=== PATIENT | female | born 1990 | race African-American/Black ===

== ENCOUNTER 2019-08-06 18:26 | Emergency (ER) | payer SELFPAY ==
--- NOTE | 2019-08-06 18:50 | ER Document Report ---
ED Medical Screen (RME) - General Chief Complaint: Vag Bleeding, +preg <12wks Stated Complaint: ABDOMINAL PAIN, VAGINAL BLEEDING Time Seen by Provider: 08/06/19 18:46 Mode of Arrival: Ambulatory Information source: Patient Notes: 29-year-old female presented to ED for site of pelvic pain vaginal bleeding spotting. She is about 8 weeks . She is alert oriented respirations regular and unlabored. She states vaginal bleeding is started on 11 July and is been intermittent since then. The pain started 2 days ago. She states she developed some back pain also today. 1 para 0. I have greeted and performed a rapid initial assessment of this patient. A comprehensive ED assessment and evaluation of the patient, analysis of test results and completion of medical decision making process will be conducted by an additional ED providers. TRAVEL OUTSIDE OF THE [place] IN LAST 30 DAYS: No - Related Data Allergies/Adverse Reactions: No Known Allergies Allergy (Unverified 05/22/15 19:26) Past Medical History - Past Medical History Cardiac Medical History: Reports: Hx Hypertension Neurological Medical History: Reports: Hx Migraine Past Surgical History: Reports: Hx Oral Surgery - Immunizations Hx Diphtheria, Pertussis, Tetanus Vaccination: Yes Physical Exam - Vital signs Vitals: Temp Pulse Resp BP Pulse Ox 98.6 F 88 18 131/77 H 100 08/06/19 18:33 08/06/19 18:33 08/06/19 18:33 08/06/19 18:33 08/06/19 18:33 Course - Vital Signs Vital signs: Temp Pulse Resp BP Pulse Ox 98.6 F 88 18 131/77 H 100 08/06/19 18:33 08/06/19 18:33 08/06/19 18:33 08/06/19 18:33 08/06/19 18:33
[2019-08-06 19:29] LABS: ABSOLUTE BASOPHILS # (AUTO) 0.1 10^3/uL (0.0-0.2); ABSOLUTE LYMPHOCYTES (AUTO) 2.4 10^3/uL (0.5-4.7); ABSOLUTE MONOCYTES (AUTO) 0.5 10^3/uL (0.1-1.4); ABSOLUTE NEUT (AUTO) 6.9 10^3/uL (1.7-8.2); BASOPHILS % (AUTO) 0.5 % (0-2); EOSINOPHILS % (AUTO) 0.2 % (0-6); HEMATOCRIT 32.7 % (36.0-47.0); HEMOGLOBIN 10.7 g/dL (12.0-15.5); LYMPHOCYTES % (AUTO) 24.3 % (13-45); MEAN CORPUSCULAR HEMOGLOBIN 25.9 pg (27.0-33.4); MEAN CORPUSCULAR HGB CONC 32.6 g/dL (32.0-36.0); MEAN CORPUSCULAR VOLUME 79 fl (80-97); MONOCYTES % (AUTO) 5.3 % (3-13); PLATELET COUNT 314 10^3/uL (150-450); RED BLOOD COUNT 4.12 10^6/uL (3.72-5.28); RED CELL DISTRIBUTION WIDTH 14.5 % (11.5-14.0); SEGMENTED NEUTROPHILS % (AUTO) 69.7 % (42-78); TOTAL CELLS COUNTED % (AUTO) 100 %; WHITE BLOOD COUNT 9.9 10^3/uL (4.0-10.5)
[2019-08-06 19:35] LABS: APPEARANCE,URINE CLEAR; BILIRUBIN,URINE NEGATIVE (NEGATIVE); COLOR,URINE YELLOW; GLUCOSE, URINE NEGATIVE (NEGATIVE); KETONES,URINE 20 mg/dL (NEGATIVE); PROTEIN,URINE NEGATIVE (NEGATIVE); URINE SPECIFIC GRAVITY 1.013; UROBILINOGEN,URINE NEGATIVE mg/dL (<2.0)
[2019-08-06 19:46] LABS: ALBUMIN 4.3 g/dL (3.5-5.0); ALKALINE PHOSPHATASE 34 U/L (38-126); ANION GAP 8 (5-19); ASPARTATE AMINO TRANSFERASE 20 U/L (14-36); BILIRUBIN,DIRECT 0.1 mg/dL (0.0-0.4); BILIRUBIN,TOTAL 0.7 mg/dL (0.2-1.3); BLOOD UREA NITROGEN 7 mg/dL (7-20); CALCIUM 9.7 mg/dL (8.4-10.2); CARBON DIOXIDE 24 mmol/L (22-30); CHLORIDE 106 mmol/L (98-107); GLUCOSE 72 mg/dL (75-110); POTASSIUM 4.2 mmol/L (3.6-5.0); TOTAL PROTEIN 7.7 g/dL (6.3-8.2)
--- NOTE | 2019-08-06 21:15 | ER Document Report ---
ED General - General Chief Complaint: Vag Bleeding, +preg <12wks Stated Complaint: ABDOMINAL PAIN, VAGINAL BLEEDING Time Seen by Provider: 08/06/19 18:46 Mode of Arrival: Ambulatory TRAVEL OUTSIDE OF THE [place] IN LAST 30 DAYS: No - HPI Notes: 29-year-old female G1, P0 approximately 8+ weeks by dates presents with lower pelvic pain and vaginal bleeding. Of note, she has had some intermittent spotting since late June. However the last 2 to 3 days developed some g radual onset lower right midline pelvic pain. Comes and goes. Bleeding is poorly quantified. Moderate intensity, gradual onset, nonradiating. No other modifying factors, no other associated symptoms, no other provocative or palliative factors. No OB care to date - Related Data Allergies/Adverse Reactions: No Known Allergies Allergy (Unverified 05/22/15 19:26) Past Medical History - General Information source: Patient - Social History Smoking Status: Never Smoker Family History: Reviewed & Not Pertinent Patient has suicidal ideation: No Patient has homicidal ideation: No - Past Medical History Cardiac Medical History: Reports: Hx Hypertension Neurological Medical History: Reports: Hx Migraine Past Surgical History: Reports: Hx Oral Surgery - Immunizations Hx Diphtheria, Pertussis, Tetanus Vaccination: Yes Review of Systems - Review of Systems Notes: Review of systems as in the history of present illness, otherwise negative x 10 systems. Physical Exam - Vital signs Vitals: Temp Pulse Resp BP Pulse Ox 98.6 F 88 18 131/77 H 100 08/06/19 18:33 08/06/19 18:33 08/06/19 18:33 08/06/19 18:33 08/06/19 18:33 - Notes Notes: General: Well developed . HEENT: Normocephalic, atraumatic. Pupils equal round reactive to light. No JVD. Chest: No trauma. Respiratory: Good air exchange, normal excursion. Cardiac: Regular rhythm. No murmurs or gallops. Abdomen: Soft, benign. Nondistended. Nontender. Back: No asymmetry or gross abnormality. Motor: Grossly normal power and tone. Neurologic: Alert, nonfocal. Cranial nerves II-12 are intact. Sensation intact. Vascular: Well perfused. Normal peripheral pulses. Skin: No petechiae or purpura. Course - Re-evaluation Re-evalutation: 08/06/19 21:15 Patient was evaluated by the [facility] provider prior to my evaluation. Studies / interventions have been ordered by this provider and may still be pending. Patient has benign abdominal exam and evaluation. Broad differential diagnosis include ectopic , threatened AB early etiology. At this point, labs reviewed, grossly unremarkable. Of note, patient is Rh+. Transvaginal ultrasound is currently pending, will perform serial exams and reevaluate. 08/06/19 21:35 Ultrasound is obtained, shows intrauterine , possible subchorionic hemorrhage, no evidence of ectopic. Serial exam showed benign abdomen. Patient will be discharged home to follow-up closely with her obstetric physician, return if worsening. - Vital Signs Vital signs: Temp Pulse Resp BP Pulse Ox 98.6 F 88 18 131/77 H 100 08/06/19 18:33 08/06/19 18:33 08/06/19 18:33 08/06/19 18:33 08/06/19 18:33 - Laboratory Result Diagrams: 08/06/19 19:12 08/06/19 19:12 Laboratory results interpreted by me: 08/06/19 08/06/19 08/06/19 19:12 19:12 19:12 Hgb 10.7 L Hct 32.7 L MCV 79 L MCH 25.9 L RDW 14.5 H Glucose 72 L Alkaline Phosphatase 34 L Beta HCG, Quant 43445.00 H Urine Ketones 20 H Discharge - Discharge Clinical Impression: Threatened Condition: Stable Disposition: HOME, SELF-CARE Instructions: Threatened Miscarriage ([facility]) Additional Instructions: See your collection systems technician over the next 24 to 48 hours.
--- NOTE | 2019-08-06 21:18 | RADIOLOGY REPORT (SQ) ---
EXAM DESCRIPTION: [facility]: US TRANSVAGINAL CLINICAL HISTORY: 29 years Female; Vaginal spotting pelvic pain TECHNIQUE: Endovaginal pelvic ultrasound was performed. COMPARISON: None. FINDINGS: Uterus: 9.1 x 5.8 x 6.6 cm. Single intrauterine gestational sac. pole 1.43 cm, 7 weeks 5 days heart rate 153 BPM Inferior to the gestational sac there is a heterogeneous area 1.2 x 1.2 x 1.7 cm, suspicious for focal hemorrhage. Cervix 3.1 cm long, closed Right ovary: 3.1 x 2 x 1.5 cm. Normal vascular flow on Doppler. Left ovary: 3.1 x 1.3 x 2 cm. Normal vascular flow on Doppler. No free fluid. No adnexal masses. IMPRESSION: 1. Single viable IUP, EGA 7 weeks 5 days, JOSE 03/19/2020 2. Heterogeneous area distal to the gestational sac, suspicious for a moderately sized subchorionic hemorrhage.
[2019-08-06 21:48] VITALS: BP 136/72
== END 2019-08-06 21:48 | disposition home or self-care (01) ==
LOC: ER 18:26
DX: O20.0 Threatened abortion (principal); Z3A.08 8 weeks gestation of pregnancy
CPT/HCPCS: 36415; 76817; 80053; 81001; 84702; 85025; 86900; 86901; 99284

== ENCOUNTER 2019-08-28 15:30 | Emergency (ER) | payer SELFPAY ==
[2019-08-28] MEDS ORDERED: BUPIVACAINE HCL 0.5%-EPI 1:200000 INJ/PF 30 ML VIAL INJ ONE ×2 (17:58→18:45)
--- NOTE | 2019-08-28 18:06 | ER Document Report ---
HPI - HPI Time Seen by Provider: 08/28/19 17:35 Pain Level: 5 Context: Patient is a 29-year-old female who presents emergency department with a chief complaint of left lower dental pain. Patient reports this is been present for about 1 day. Patient reports she has a broken tooth in her left lower mouth has been present for about 1 year. Patient reports she has needed antibiotics in the past for dental infection. Patient reports she attempted to call the dentist today but was unable to get a hold of anybody due to the holiday. Patient reports she is 10 weeks . Patient denies facial swelling. - REPRODUCTIVE Reproductive: REPORTS: : Past Medical History - General Information source: Patient - Social History Smoking Status: Never Smoker Frequency of alcohol use: None Drug Abuse: None Lives with: Family Family History: Reviewed & Not Pertinent Patient has suicidal ideation: No Patient has homicidal ideation: No - Past Medical History Cardiac Medical History: Reports: Hx Hypertension Pulmonary Medical History: Reports: None EENT Medical History: Reports: None Neurological Medical History: Reports: Hx Migraine Endocrine Medical History: Reports: None Renal/ Medical History: Reports: None Malignancy Medical History: Reports: None GI Medical History: Reports: None Musculoskeletal Medical History: Reports None Skin Medical History: Reports None Psychiatric Medical History: Reports: None Traumatic Medical History: Reports: None Infectious Medical History: Reports: None Past Surgical History: Reports: Hx Oral Surgery - Immunizations Hx Diphtheria, Pertussis, Tetanus Vaccination: Yes Vertical Provider Document - CONSTITUTIONAL Agree With Documented VS: Yes Exam Limitations: No Limitations General Appearance: Moderate Distress - INFECTION CONTROL TRAVEL OUTSIDE OF THE [place] IN LAST 30 DAYS: No - HEENT HEENT: Atraumatic, Normocephalic Mouth Diagram: 1 - Broken tooth down to gum Notes: There is no palpable abscess, no facial edema. Uvula is midline. - RESPIRATORY Respiratory: Breath Sounds Normal, No Respiratory Distress - CARDIOVASCULAR Cardiovascular: Regular Rate, Regular Rhythm - GI/ABDOMEN Gastrointestinal: Abdomen Soft, Abdomen Non-Tender, Normal Bowel Sounds - MUSCULOSKELETAL/EXTREMETIES Musculoskeletal/Extremeties: FROM - NEURO Level of Consciousness: Awake, Alert, Appropriate - DERM Integumentary: Warm, Dry, No Rash Course - Re-evaluation Re-evalutation: 08/28/19 19:[address] Sunshine to perform dental block, patient is , states around [address] Sunshine did perform a inferior alveolar nerve block on the left side, no aspiration of blood noted prior to injecting with 3 mL's of 2% lidocaine with epi in a 25 gauge needle. 10 minutes after block, patient reports her pain is slightly better, rating it a 4/5. Dr. Sunshine did inject another 2 mls of lidocaine - no aspiration of blood noted prior to injecting. Patient tolerated well. Patient states the dental block is working slightly although she does report pain. Per Dr. Sunshine states give the patient [place] to go home with, as there is a small percentage of patients who do not have success with a dental block. I did inform the patient since she is do not take this unless abs olutely necessary. Patient verbalized understanding. I did give the patient the [facility] to follow-up with. Antibiotics given. - Vital Signs Vital signs: Temp Pulse Resp BP Pulse Ox 99.0 F 81 20 154/96 H 100 08/28/19 16:24 08/28/19 16:24 08/28/19 16:24 08/28/19 16:24 08/28/19 16:24 Discharge - Discharge Clinical Impression: Pain, dental, Dental infection Condition: Stable Disposition: HOME, SELF-CARE Additional Instructions: Today was in the emergency department for a dental pain. We are placing you on oral antibiotic. Since you are were limited as to what it we can give you for pain. We did do a dental block. This can last 6 to 8 hours. Ultimately you need to follow-up with dentist or oral surgeon. I have referred you to the [facility]. Take Tylenol as needed for pain. Dental Infection or Abscess You have an infection, perhaps an abscess (pus formation) of the gum around one of your teeth, which is probably decayed. If there is an abscess, it may drain on its own or it may need to be opened or lanced. Severe swelling or drainage around a tooth usually means a deep dental abscess which usually requ ires evaluation and treatment by a dentist or oral surgeon. Antibiotics may be prescribed while awaiting dental treatment. If you develop high fever with chills, worsening pain, or increasing swelling in the area, see a dentist or oral surgeon immediately or return to the Emergency Department immediately. Prescriptions: Penicillin V Potassium [Penicillin Vk 500 mg Tablet] 500 mg PO BID #20 tablet Forms: Return to Work Referrals: [facility] [Provider Group] - Follow up as needed
[2019-08-28] MEDS ORDERED: LIDOCAINE 2%/EPINEPHRINE INJ 20 ML VIAL INJ ONE (18:28)
[2019-08-28] MEDS ORDERED: HYDROCODONE/ACETAMINOPHEN 5-325 MG (6 TAB/ER DISP) PO PRN (19:29)
[2019-08-28 19:45] VITALS: BP 150/91
== END 2019-08-28 19:45 | disposition home or self-care (01) ==
LOC: ER 15:30
DX: O26.891 Other specified pregnancy related conditions, first trimester (principal); K04.7 Periapical abscess without sinus; K08.89 Other specified disorders of teeth and supporting structures; O16.1 Unspecified maternal hypertension, first trimester; Z3A.10 10 weeks gestation of pregnancy
CPT/HCPCS: 96374; 99282; J3490